=== PATIENT | male | born 1985 | race Caucasian/White ===

== ENCOUNTER 2016-07-28 10:14 | Emergency (ER) | payer SELFPAY ==
[~2016-07-28] VITALS: Ht 180.3 cm; Wt 81.6 kg
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
[2016-07-28] MEDS ORDERED: IBUPROFEN 600 MG TABLET PO ONE ×2 (11:58→12:00)
[2016-07-28] MEDS ORDERED: CEPHALEXIN MONOHYDRATE 500 MG CAPSULE PO ONE ×2 (11:58→12:00)
[2016-07-28] MEDS ORDERED: TDAP [DIPH/PERTUSSIS/TET] 0.5 ML VIAL IM ONE ×2 (11:58→12:00)
--- NOTE | 2016-07-28 12:10 | NUR ---
PT MEDICATED ORDERED.
[2016-07-28 12:15] VITALS: BP 129/71
--- NOTE | 2016-07-28 12:53 | NUR ---
Patient discharged to home in stable condition. Written and verbal after care instructions given. Patient verbalizes understanding of instruction.
== END 2016-07-28 12:53 | disposition home or self-care (01) ==
LOC: ER 10:17
DX: L03.114 Cellulitis of left upper limb (principal); S80.02XA Contusion of left knee, initial encounter; S40.812A Abrasion of left upper arm, initial encounter; V29.9XXA Motorcycle rider (driver) (passenger) injured in unspecified traffic accident, initial encounter; Y93.89 Activity, other specified; Y99.8 Other external cause status; Y92.89 Other specified places as the place of occurrence of the external cause
CPT/HCPCS: 90471; 90715; 99283; A4606; Z7610